=== PATIENT | female | born 1995 | race Caucasian/White ===

== ENCOUNTER 2022-08-15 15:13 | Outpatient (CLI) | payer BC, SELFPAY | END 2022-08-15 15:14 | disposition home or self-care (01) | PROVIDERS: PCP Family Medicine; Visit Provider Family Medicine | DX: F41.9 Anxiety disorder, unspecified (principal); Z13.29 Encounter for screening for other suspected endocrine disorder | CPT/HCPCS: 84443 ==

== ENCOUNTER 2022-10-16 11:49 | Outpatient (CLI) | payer BC, MEDICAID, SELFPAY ==
[2022-10-16 13:38] LABS: Free T4 Free Thyroxine* 0.85 ng/dL (0.70-1.85)
[2022-10-16 13:51] LABS: Thyroid Stimulating Hormone* 0.877 uIU/mL (0.270-4.20)
== END 2022-10-16 11:50 | disposition home or self-care (01) ==
PROVIDERS: PCP Family Medicine; Visit Provider Family Medicine
DX: Z13.29 Encounter for screening for other suspected endocrine disorder (principal)
CPT/HCPCS: 84439; 84443

== ENCOUNTER 2023-01-02 10:46 | Outpatient (CLI) | payer BC, MEDICAID, SELFPAY ==
--- NOTE | 2023-01-02 11:00 | CRLHL7_ITS ---
For Patients: As a result of the Cures Act, medical imaging exams and procedure reports are released immediately into your electronic medical record. You may view this report before your referring provider. If you have questions, please contact your health care provider. Indication: Sinusitis Technique: Performed without IV contrast Comparison: 05/08/2021 Findings: Frontal sinuses: Mild mucosal thickening within the frontal sinuses improved compared to the prior study. Ethmoid sinuses: Moderate opacification of the ethmoid sinuses, improved compared to the prior study. Maxillary sinuses: Mucoperiosteal thickening within the maxillary sinuses. The maxillary sinus drainage pathways are obstructed on both sides. Sphenoid sinuses: Increased mucus within the left sphenoid sinus. Improved appearance of the right sphenoid sinus with mild residual mucosal thickening. The sphenoidal ethmoidal recesses are occluded. Nasal Cavity: Nasal septum is slightly convexed to the right. No hayley bullosa. Mild polyps may be present superiorly. No TMJ abnormalities identified. The visualized portions of the orbits, intracranial contents and upper soft tissue neck are grossly negative. Impression: 1. Overall improved appearance of the sinuses compared to the prior study although there is increased mucus within the left sphenoid sinus. 2. Continued obstruction of the sinus drainage pathways. Please note that all CT scans at this facility use dose modulation, iterative reconstruction, and/or weight-based dosing when appropriate to reduce radiation dose to as low as reasonably achievable. Dictated by Kaz Lopez MD @ 01/02/2023 1:15:58 PM (Electronically Signed)
== END 2023-01-02 10:47 | disposition home or self-care (01) ==
LOC: CT 10:47
PROVIDERS: PCP Family Medicine; Visit Provider Otolaryngology
DX: J32.9 Chronic sinusitis, unspecified (principal)
CPT/HCPCS: 70486

== ENCOUNTER 2023-04-10 09:00 | Day surgery (SDC) | payer BC, MEDICAID, SELFPAY ==
[2023-04-10] VITALS (14 sets, daily range): BP systolic 116–139; BP diastolic 74–88; PULSE 54–93; RESP 16–20; TEMP 36.4–36.9; O2SAT 94–100; BMI 36.3
[2023-04-10 09:22] LABS: Ur HCG Qualitative* Negative (Negative)
[2023-04-10] MEDS: LACTATED RINGERS 1000 ML 1,000 ML 100 ML IV (09:41)
[2023-04-10] MEDS: SODIUM CHLORIDE 0.9 % (FLUSH) 10 ML SYRINGE IVF (09:41)
--- NOTE | 2023-04-10 10:34 | W.ANESCHARGE ---
Anesthesia Charges Start Date/Time Anesthesia Start Date: 04/10/23 Anesthesia Start Time: 10:44 Stop Date/Time Anesthesia Stop Date: 04/10/23 Anesthesia Stop Time: 11:39
[2023-04-10] MEDS: COCAINE HCL 4 % 4 ML SOLUTION NOSTRIL-B (10:58)
[2023-04-10] MEDS: BUPIVACAINE 0.5 %/EPI 1:200K 30 ML INJECTION (10:59)
[2023-04-10] MEDS: AYR SALINE NASAL GEL 1 APPLIC NOSTRIL-B (11:20)
[2023-04-10] MEDS: MUPIROCIN 1 GM PACKET 1 APPLIC TOPICAL (11:20)
--- NOTE | 2023-04-10 11:41 | P.ENTPROC_ITS ---
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 Noted Memorop image guidance with excellent registration was used throughout the procedures well 0 degree endoscopes. Under general trach anesthesia patient was prepped and draped in usual fashion the nose decongested and injected. Since I did used to Coblation Wand to shrink the inferior turbinates as they were quite bulky and was obscured my vision. The left nasal cavity was inspected with the 0 degree scope. There were several polyps visible the middle meatus. These were removed. The inferior quarter the uncinate process was taken down and 9 mm antrostomy created. A large amount of polypoid tissue was removed from this region and the root and the maxillary sinus. A complete ethmoidectomy was done in the anterior to posterior fashion r emoving a moderate amount of polypoid tissue. The sphenoid sinus was then entered and a large amount of inspissated mucus was removed. The above procedures were repeated on the right side in identical fashion with essentially identical findings. A Merocel pack was trimmed lengthwise coated in Bactroban and placed in the middle meatus on each side. Patient was extubated in the operating room taken recovery in satisfactory condition. Blood loss during procedure was less than 25 mL. Surgeon: Damion Bella MD
--- NOTE | 2023-04-10 11:41 | W.ANESCHARGE ---
Anesthesia Charges Start Date/Time Anesthesia Start Date: 04/10/23 Anesthesia Start Time: 10:44 Stop Date/Time Anesthesia Stop Date: 04/10/23 Anesthesia Stop Time: 11:39
[2023-04-10] MEDS: IBUPROFEN 200 MG TABLET PO (13:15)
[2023-04-10] MEDS: ACETAMINOPHEN 325 MG TABLET PO (13:26)
== END 2023-04-10 13:25 | disposition home or self-care (01) ==
LOC: OR 09:01
PROVIDERS: PCP Family Medicine; Visit Provider Otolaryngology
PROC: (CPT 31231; principal; 2023-04-10 10:30)
DX: J32.3 Chronic sphenoidal sinusitis (principal); J32.2 Chronic ethmoidal sinusitis; J32.0 Chronic maxillary sinusitis; J33.8 Other polyp of sinus
CPT/HCPCS: 31288; 31259; 31267; 00160; 81025; 88305; A9270; J0330; J1100; J1200; J2250; J2405; J2704; J3010; J3490; J7120

== ENCOUNTER 2023-08-06 08:38 | Outpatient (CLI) | payer BC, MEDICAID, SELFPAY ==
--- NOTE | 2023-08-06 09:00 | CRLHL7_ITS ---
For Patients: As a result of the Cures Act, medical imaging exams and procedure reports are released immediately into your electronic medical record. You may view this report before your referring provider. If you have questions, please contact your health care provider. Indication: Chronic sinusitis Technique: Performed without IV contrast Comparison: 01/02/2023 Findings: Frontal sinuses: Increased mucus and mucosal thickening within the right frontal sinus. Mild mucosal thickening within the inferior left frontal sinus is similar. Ethmoid sinuses: Increased opacification of the ethmoid sinuses bilaterally. Maxillary sinuses: Moderate mucosal thickening bilaterally with obstruction of the sinus drainage pathways. The left-sided opacification has increased since the prior study. Sphenoid sinuses: Mild improved aeration within the left sphenoid sinus compared to the prior study with residual mucous and mucosal thickening. Mild mucosal thickening within the right sphenoid sinus is similar. The right-sided drainage pathway is clear. The left-sided drainage pathway is at least partially obstructed. Nasal Cavity: The nasal septum is midline. No hayley bullosa. Mild mucous within the upper left nasopharynx. Clear middle ear cavities and mastoid air cells. Normal external auditory canals. Impression: 1. Bilateral sinus disease which has increased within the left maxillary sinus, right frontal sinus and both ethmoid sinuses since the prior study. 2. Mild improvement in the sinus disease regarding the left sphenoid sinus. Please note that all CT scans at this facility use dose modulation, iterative reconstruction, and/or weight-based dosing when appropriate to reduce radiation dose to as low as reasonably achievable. Dictated by Kaz Lopez MD @ 08/06/2023 9:43:45 AM (Electronically Signed)
== END 2023-08-06 08:39 | disposition home or self-care (01) ==
LOC: CT 08:40
PROVIDERS: PCP Family Medicine; Visit Provider Otolaryngology
DX: J32.9 Chronic sinusitis, unspecified (principal); J32.0 Chronic maxillary sinusitis; R09.81 Nasal congestion
CPT/HCPCS: 70486

== ENCOUNTER 2023-08-22 11:43 | Emergency (ER) | payer BC, MEDICAID, SELFPAY ==
[2023-08-22 11:49] VITALS: BP 128/81; PULSE 78; RESP 16; TEMP 36.8; O2SAT 97; BMI 36.0
--- NOTE | 2023-08-22 11:55 | CRLHL7_ITS ---
For Patients: As a result of the Cures Act, medical imaging exams and procedure reports are released immediately into your electronic medical record. You may view this report before your referring provider. If you have questions, please contact your health care provider. INDICATION: Injured last night COMPARISON: None. TECHNIQUE: Three views left ankle. FINDINGS: BONES: No fracture. Normal mineralization. No focal bone lesion. JOINT: Normal ankle joint alignment. No ankle joint effusion. Joint spaces: Normal. SOFT TISSUES: Lateral predominant soft tissue swelling. No foreign body. IMPRESSION: Lateral soft tissue swelling in the left ankle. No fracture or dislocation. Dictated by Damari Edwards MD @ 08/22/2023 12:39:47 PM (Electronically Signed)
--- NOTE | 2023-08-22 11:55 | ED.LOWEXIN ---
HPI - Extremity Injury (Lower) General Chief Complaint: Extremity Pain/Injury, Lower Stated Complaint: L ankle injury Time Seen by Provider: 08/22/23 11:45 History of Present Illness HPI Narrative: This 28-year-old female comes in with a left ankle injury that occurred last night. She states she was wearing high heels and twisted her left ankle. She comes in this morning because it is more swollen and painful. She has been able to ambulate on this leg since the injury. She does not report any other injury due to this fall. Related Data Home Medications Medication Instructions Recorded Confirmed zafirlukast 20 mg tablet 20 mg PO BID 02/20/23 07/28/23 cetirizine 10 mg capsule (Zyrtec) 10 mg PO QDAY PRN 03/26/23 07/28/23 Previous Rx's Medication Instructions Recorded norgestimate-ethinyl estradiol 1 tab PO QDAY #84 tabs 07/20/22 0.18 mg/0.215mg/0.25mg-35 mcg(28)tablet (Ortho Tri-Cyclen (28)) albuterol sulfate 90 mcg/actuation 2 puff inhalation Q4-6H PRN 10/31/22 aerosol inhaler shortness of breath or wheezing #8.5 grams cephalexin 250 mg capsule 250 mg PO TID #18 caps 04/10/23 oxycodone 5 mg tablet 5 mg PO Q4H PRN pain #30 tabs 04/10/23 escitalopram oxalate 5 mg tablet 5 mg PO QDAY #90 tabs 06/03/23 doxycycline hyclate 100 mg tablet 100 mg PO BID #14 tabs 08/18/23 Allergies Allergy/AdvReac Type Severity Reaction Status Date / Time No Known Drug Allergies Allergy Verified 08/22/23 11:51 Review of Systems Status of ROS: Reports: 10 or more systems reviewed and unremarkable except as noted in History and below Narrative: Constitutional: No fevers, no weight gain or loss. Eyes: No discharge. No vision changes. HENT: No congestion, no sore throat, no ear pain. Cardiovascular: No chest pain, no palpitations. Respiratory: No shortness of breath, no wheezes, no cough. Gastrointestinal: No abdominal pain, no vomiting, no diarrhea. Genitourinary: No dysuria, no hematuria. Musculoskeletal: Left ankle injury as described above. Skin: No rashes, no pruritis. Neurological: No dizziness, weakness, sensory change, speech change. Endo/Heme/Allergies: No bruising or bleeding. No polydipsia. Pysch: no suicidality, no anxiety, no insomnia. All other systems reviewed and are negative. [facility] Surgical History [place] teeth extracted ?K08.409 - Partial loss of teeth, unspecified cause, unspecified class (ICD-10) Social History Smoking Status: Never smoker How often do you have a drink containing alcohol: 2-4 times a month How many standard drinks containing alcohol do you have on a typical day: 1 or 2 How often do you have six or more drinks on one occasion: Never AUDIT-C Alcohol total score: 2 Non-prescribed substance use: denies use Caffeine: No Little interest or pleasure in doing things: not at all Feeling down, depressed, or hopeless: not at all Are you using contraception or practicing any form of control: Yes Exam Narrative: Exam Narrative: Constitutional: Well-developed, well-nourished, no acute distress. HEENT: Normocephalic, atraumatic. Neck: Normal range of motion. Nontender. Supple. Heart: Intact distal pulses. Lungs: No chest discomfort. No wheezes, rhonchi, or rales. Abdomen: Nontender. Back: Normal range of motion. Extremities: Mild to moderate swelling over the left lateral malleolus of the ankle. No sign of ecchymosis or joint effusion. There is no ligament instability. Skin: Intact. No rash. Warm. No erythema or pallor. Neurologic: No altered sensation. No weakness. Alert and oriented. Psychiatric: No suicidality. No anxiety or depression. No insomnia. Nursing notes and vitals signs are reviewed. Const: Vital Signs, click to edit/add: Vital Signs - 24 hr 08/22/23 11:49 Temperature 98.2 F Pulse Rate [Right Pulse Oximeter] 78 Respiratory Rate 16 Blood Pressure [Ri ght Upper Arm] 128/81 Pulse Oximetry 97 Oxygen Delivery Me thod Room Air Course Vital Signs Vital signs: Initial Vital Signs Temperature 98.2 F 08/22/23 11:49 Temperature Source Temporal Artery Scan 08/22/23 11:49 Pulse Rate 78 08/22/23 11:49 Pulse Rhythm Regular 08/22/23 11:49 Pulse Strength 3+ Normal 08/22/23 11:49 Respiratory Rate 16 08/22/23 11:49 Blood Pressure 128/81 08/22/23 11:49 Blood Pressure Mean 96 08/22/23 11:49 Blood Pressure Position Sitting 08/22/23 11:49 Pulse Oximetry 97 08/22/23 11:49 Oxygen Delivery Method Room Air 08/22/23 11:49 Vital Signs Temperature 98.2 F 08/22/23 11:49 Pulse Rate 78 08/22/23 11:49 Respiratory Rate 16 08/22/23 11:49 Blood Pressure 128/81 08/22/23 11:49 Pulse Oximetry 97 08/22/23 11:49 Oxygen Delivery Method Room Air 08/22/23 11:49 Temperature 98.2 F 08/22/23 11:49 Pulse Rate 78 08/22/23 11:49 Respiratory Rate 16 08/22/23 11:49 Blood Pressure 128/81 08/22/23 11:49 Pulse Oximetry 97 08/22/23 11:49 Oxygen Delivery Method Room Air 08/22/23 11:49 MDM - Extremity Injury (Lower) MDM Narrative Medical decision making narrative: This patient was wearing high heels last night and twisted her left ankle. She was ambulatory after the injury but had much more pain and stiffness when arising from bed this morning so she came in for evaluation. X-ray imaging shows no sign of fracture or dislocation. The patient states that she had a fair amount of pain when attempting to walk it 1st this morning but now is able to ambulate. I did recommend early activity as tolerated and stated that her ankle is not unstable and she is best served if she does not have any immobilizing structures a around this injury. I did offer crutches which she declined. She was able to get up and ambulate in the room. I recommended using [id number] pain medicines also as needed and directed. Imaging Data XR L Ankle: Radiologist's impression: Lateral soft tissue swelling in the left ankle. No fracture or dislocation. Discharge Plan Discharge Clinical Impression: Ankle sprain and strain Patient Disposition: Home, Self-Care Condition: Stable Additional Instructions: Increase activity as tolerated. Use [id number] medicines as needed and directed. Follow up with MD or return if worsening. Prescriptions: No Action Zyrtec 10 mg capsule 10 mg PO QDAY PRN zafirlukast 20 mg tablet 20 mg PO BID Rx Instructions: must be taken on empty stomach, at least 1 hr before or 2 hrs after a meal/food cephalexin 250 mg capsule 250 mg PO TID Qty: 18 0RF oxycodone 5 mg tablet 5 mg PO Q4H PRN (Reason: pain) Qty: 30 0RF norgestimate-ethinyl estradiol [Ortho Tri-Cyclen (28)] 0.18/0.215/0.25 mg-35 mcg (28) tablet 1 tab PO QDAY Qty: 84 3RF albuterol sulfate 90 mcg/actuation HFA aerosol inhaler 2 puff inhalation Q4-6H PRN (Reason: shortness of breath or wheezing) Qty: 8.5 3RF escitalopram oxalate 5 mg tablet 5 mg PO QDAY Qty: 90 2RF doxycycline hyclate 100 mg tablet 100 mg PO BID Qty: 14 0RF Follow Up/Referrals: Oswaldo Hernandez MD [Primary Care Provider] - Stand Alone Forms: [employer] Info Instructions
== END 2023-08-22 12:58 | disposition home or self-care (01) ==
PROVIDERS: Emergency Provider Emergency Medicine Emergency Medical Services; PCP Family Medicine
DX: S93.402A Sprain of unspecified ligament of left ankle, initial encounter (principal)
CPT/HCPCS: 73610; 99283; 99284

== ENCOUNTER 2024-10-18 08:22 | Outpatient (CLI) | payer BC, SELFPAY | END 2024-10-18 08:23 | disposition home or self-care (01) | PROVIDERS: PCP Family Medicine; Visit Provider Family Medicine | DX: E05.00 Thyrotoxicosis with diffuse goiter without thyrotoxic crisis or storm (principal); Z13.228 Encounter for screening for other metabolic disorders; Z13.220 Encounter for screening for lipoid disorders | CPT/HCPCS: 80048; 80061; 84443 ==